=== PATIENT | male | born 1945 | race Caucasian/White ===

== ENCOUNTER 2020-11-22 08:51 | Emergency (ER) | payer OTHER ==
[~2020-11-22] VITALS: Ht 172.7 cm; Wt 83.9 kg
[~2020-11-22 08:51] MED LIST: ASPI81CH; ATEN25
[2020-11-22] MEDS ORDERED: Cephalexin500 MG PO (11:05)
[2020-11-22] MEDS ORDERED: HYDR1TAB94 PO (11:06)
== END 2020-11-22 12:18 | disposition home or self-care (01) ==
LOC: ER 08:51
DX: S62.634B Displaced fracture of distal phalanx of right ring finger, initial encounter for open fracture (principal); Z88.0 Allergy status to penicillin; Z23 Encounter for immunization; Z79.82 Long term (current) use of aspirin; W23.0XXA Caught, crushed, jammed, or pinched between moving objects, initial encounter
CPT/HCPCS: 12001; 73140; 90471; 90714; 99283-25; A9270

== ENCOUNTER 2021-07-04 13:25 | Emergency (ER) | payer OTHER ==
[~2021-07-04] VITALS: Ht 170.2 cm; Wt 75.8 kg
[~2021-07-04 13:25] MED LIST changes: +Cephalexin500 MG PO; +HYDR1TAB94 PO
[2021-07-04] MEDS ORDERED: METO25 PO (13:34)
[2021-07-04 13:59] LABS: BASOPHILS ABSOLUTE AUTO 0.01 K/mm3 (0.00-0.23); BASOPHILS PERCENT AUTO 0 % (0-2); EOSINOPHILS PERCENT AUTO 0 % (0-6); Hematocrit 44.8 % (37.0-53.0); Hemoglobin 15.4 g/dL (13.5-17.5); IMMATURE GRAN ABSOLUTE AUTO 0.03 K/mm3 (0.00-0.10); IMMATURE GRAN PERCENT AUTO 1 % (0-1); LYMPHOCYTES ABSOLUTE AUTO 0.64 K/mm3 (0.84-5.20); LYMPHOCYTES PERCENT AUTO 10 % (21-46); MONOCYTES ABSOLUTE AUTO 0.34 K/mm3 (0.16-1.47); MONOCYTES PERCENT AUTO 5 % (4-13); Mean Corpuscular HGB Conc 34.4 g/dL (31.5-36.5); Mean Corpuscular Volume 96 fL (80-100); Mean Platelet Volume 8.5 fL (9.1-12.4); NEUTROPHILS PERCENT AUTO 84 % (41-73); Platelet Count 231 K/mm3 (150-400); RDW Standard Deviation 43.1 fL (35.1-46.3); Red Blood Cell Count 4.66 M/mm3 (4.30-5.90); White Blood Cell Count 6.32 K/mm3 (4.00-11.30)
[2021-07-04 14:17] LABS: Alanine Aminotransfer (ALT/SGP 42 U/L (12-78); Alk Phos 78 U/L (50-136); Anion Gap 10 mmol/L (6-16); Aspartate Aminotrans (AST/SGOT 33 U/L (12-37); Bilirubin, Total 1.5 mg/dL (0.1-1.0); Blood Urea Nitrogen 14 mg/dL (8-24); Bun/Creatinine Ratio 16.7 (12.0-20.0); CO2, Blood 25 mmol/L (21-32); Calcium, Blood 9.5 mg/dL (8.5-10.1); Chloride, Blood 101 mmol/L (98-108); Creatinine, Blood 0.84 mg/dL (0.60-1.20); Globulin, Blood 3.9 g/dL (2.2-4.0); Glomerular Filtration Rate >60 (60-); Glucose, Blood 143 mg/dL (70-99); Potassium, Blood 4.1 mmol/L (3.5-5.5); Sodium, Blood 136 mmol/L (136-145); Total Protein, Blood 7.9 g/dL (6.4-8.2)
[2021-07-04] MEDS ORDERED: LORA.5 PO (15:52)
[2021-07-04] MEDS ORDERED: MECL25 PO (15:52)
== END 2021-07-04 16:18 | disposition home or self-care (01) ==
LOC: ER 13:25
PROVIDERS: Physician Assistant
DX: H81.399 Other peripheral vertigo, unspecified ear (principal); Z88.0 Allergy status to penicillin; Z91.048 Other nonmedicinal substance allergy status; Z79.899 Other long term (current) drug therapy; Z79.82 Long term (current) use of aspirin
CPT/HCPCS: 36415; 70450; 80053; 85025; 93005; 93010; 96374; 99284-25; A9270; J2405

== ENCOUNTER 2022-07-29 07:57 | Day surgery (SDC) | payer OTHER ==
[~2022-07-29] VITALS: Ht 170.2 cm; Wt 77.2 kg
[~2022-07-29 07:57] MED LIST changes: +ACET500; +LORA.5 PO; +MECL25 PO; +METO25 PO; +Saw Palmetto160 MG PO
[2022-07-29] MEDS ORDERED: GARLIC200 MG PO (08:57)
[2022-07-29] MEDS ORDERED: MULVITA PO (08:57)
[2022-07-29] MEDS ORDERED: FISH OIL 1,2001 EAC7 PO (08:57)
[2022-07-29] MEDS ORDERED: MAGNESIUM OXID500 MG PO (08:58)
--- NOTE | 2022-07-29 11:38 | NUR ---
PT BACK FROM [facility] WITH RRAD ACCESS. TR BAND IN PLACE WITH 10mL AIR IN BAND. NO BLEEDING, OOZING OR HEMATOMA NOTED. PT DENIES ANY PAIN. VSS. WILL CONTINUE TO MONITOR.
--- NOTE | 2022-07-29 13:25 | NUR ---
all air released from tr band. no bleeding, oozing or hematoma noted. vsambika. at bedside. will continue to monitor.
--- NOTE | 2022-07-29 14:12 | NUR ---
DISCHARGE PT DRESSED SELF WITH NO COMPLICATIONS. TR BAND REMOVED FROM RRAD. SITE CLEANED, AND CLOTH DOT DRESSING APPLIED. NO BLEEDING, OOZING OR HEMATOMA NOTED. VSS. PT AND BOTH STATE THEIR UNDERSTANDING OR SITE CARE AND DC INSTURCTIONS AND BOTH DENY ANY QUESTIONS OR CONCERNS UPON DC. IV DCD WITH CATH IN TACT. PT TAKEN TO EXIT VIA WHEELCHAIR WHERE WAS WAITING WITH VEHICLE.
== END 2022-07-29 14:05 | disposition home or self-care (01) ==
LOC: MHTC 07:57
DX: I35.0 Nonrheumatic aortic (valve) stenosis (principal); I20.8 Other forms of angina pectoris; I10 Essential (primary) hypertension; Z88.0 Allergy status to penicillin
CPT/HCPCS: 76937; 93005; 93010; 93454; 99152; 99153; C1769; C1887; C1894; J1644; J2250; J3010; J7030; J7050; Q9967

== ENCOUNTER 2025-05-31 12:18 | Day surgery (SDC) | payer OTHER ==
[~2025-05-31] VITALS: Ht 170.2 cm; Wt 72.8 kg
[~2025-05-31 12:18] MED LIST changes: +ACET500 PO; +ARTIFICIAL TEAR15 M2; +ATOR40TA PO; +Aspir 8181 MG PO; +Balanced Salt Epinephrine Irrigation Solution 500 mL IR SCH; +DERMACINRX FOL1 EAC2 PO; +FISH OIL 1,2001 EAC7 PO; +GARLIC200 MG PO; +MAGNESIUM OXID500 MG PO; +MULVITA PO; +Moxifloxacin HCL 0.5 MG/0.1 ML 0.4MLSYR LEFTEYE SCH; +NS 500 ML IV ONE; +PHENYLEPHRINE\\TROPICAMIDE\\TETRACAINE OPHTHALMIC DILATING SOLN LEFTEYE PRN; +Povidone-Iodine 450 DROP/30 ML Solution LEFTEYE SCH; +Povidone-Iodine 450 DROP/30 ML Solution ONE; +Tetracaine HCl/Pf 0.5% Opth Soln 4 ml ONE; +Triamcinolone Inj Susp 40 MG / ML 1ML Vial INJ SCH; +Triamcinolone Inj Susp 40 MG / ML 1ML Vial ONE; +ZINC15 PO
[2025-05-31] MEDS ORDERED: NS 500 ML IV ONE (14:06)
--- NOTE | 2025-05-31 14:08 | NUR ---
05/31/25 1408 Kathy Seo PT DENIES ANXIETY AT THIS TIME. TETRACAINE IN AT 1358 PLEDGETT IN AT 1359 PT TOLERATED WELL CALL LIGHT WITHIN REACH
[2025-05-31] MEDS ORDERED: Midazolam HCl 1MG / ML 2ML Vial ONE (14:32)
[2025-05-31 14:57] VITALS: BP 126/74
== END 2025-05-31 15:21 | disposition home or self-care (01) ==
LOC: ORSCSDS 12:18
PROVIDERS: Ophthalmology
PROC: 08DK3ZZ Extraction of Left Lens, Percutaneous Approach (ICD-10-PCS; principal; 2025-05-31 14:30)
DX: H25.812 Combined forms of age-related cataract, left eye (principal); Z96.1 Presence of intraocular lens; I25.10 Atherosclerotic heart disease of native coronary artery without angina pectoris; Z87.891 Personal history of nicotine dependence; I10 Essential (primary) hypertension; I47.10 Supraventricular tachycardia, unspecified; Z79.82 Long term (current) use of aspirin; Z79.899 Other long term (current) drug therapy
CPT/HCPCS: J2250; J3301; J7040; V2632